=== PATIENT | male | born 1945 | race Caucasian/White ===

== ENCOUNTER 2017-10-26 19:32 | Inpatient (IN) | payer MEDICARE, OTHER ==
[~2017-10-26] VITALS: Ht 175.3 cm; Wt 85.7 kg
[2017-10-26] MEDS ORDERED: IOHEXOL-350 100 ML VIAL IV ONE (19:48)
[2017-10-26] MEDS ORDERED: CT SWABBABLE VALVE TRANS SET 1 EA INFUS.SET MC ONE (19:48)
[2017-10-26] MEDS ORDERED: IV NS 0.9% 1,000 ML BAG IV ONE ×2 (20:00→20:30)
[2017-10-26 20:10] LABS: BASOPHILS % (AUTO) 0.4 % (0.0-2.0); EOSINOPHILS # (AUTO) 0.1 /CMM (0.0-0.7); EOSINOPHILS % (AUTO) 1.5 % (0.0-6.0); HEMATOCRIT 34 % (39-51); HEMOGLOBIN 11.9 g/dL (13.5-17.5); LYMPHOCYTES % (AUTO) 12.3 % (20.0-44.0); MEAN CORPUSCULAR HEMOGLOBIN 36 PG (26.0-33.0); MEAN CORPUSCULAR HGB CONC 36 g/dl (31.0-36.0); MEAN CORPUSCULAR VOLUME 102 fL (80-96); MONOCYTES # (AUTO) 0.5 /CMM (0.1-1.30); MONOCYTES % (AUTO) 6.1 % (2.0-12.0); NEUTROPHILS # (AUTO) 6.8 /CMM (1.8-8.9); NEUTROPHILS % (AUTO) 79.7 % (43.0-81.0); PLATELET COUNT (AUTO) 211 /CMM (150-450); RDW COEFFICIENT OF VARIATION 14.1 (11.5-15.0); WHITE BLOOD COUNT (AUTO) 8.5 K/uL (4.3-11.0)
[2017-10-26 20:21] LABS: CALCIUM, SERUM 8.2 mg/dL (8.5-10.1); CARBON DIOXIDE 25 mmol/L (21-32); CHLORIDE 110 mmol/L (98-107); CREATININE 3.1 mg/dL (0.6-1.3); GLUCOSE 146 mg/dL (74-106); POTASSIUM 4.3 mmol/L (3.5-5.1); SODIUM SERUM 144 mmol/L (136-145); UREA NITROGEN, BLOOD 36 mg/dL (7-18)
[2017-10-26 20:29] LABS: INR 0.93 (0.87-1.13)
[2017-10-26 20:30] LABS: TROPONIN I < 0.017 ng/mL (0.00-0.056)
--- NOTE | 2017-10-26 20:56 | NUR ---
BED 923-2
[2017-10-26] MEDS ORDERED: ASPIRIN 325 MG TABLET ONE (20:59)
[2017-10-26] MEDS ORDERED: ASPIRIN 325 MG TABLET PO ONE (21:00)
[2017-10-26 21:13] LABS: CHOLESTEROL 126 mg/dL (<200); HDL CHOLESTEROL 31 mg/dL (40-60); LDL 54 mg/dL (0-99); TRIGLYCERIDES 600 mg/dL (30-150)
[2017-10-26] MEDS ORDERED: CLOPIDOGREL BISULFATE 75 MG TABLET PO ONE (22:30)
[2017-10-26] MEDS ORDERED: ASPIRIN EC 325 MG TABLET.DR PO ONE (22:30)
--- NOTE | 2017-10-26 22:43 | NUR ---
REPORT GIVEN TO ROMEL RODRIGES.
--- NOTE | 2017-10-26 23:10 | NUR ---
RN NOTES INITIAL RECEIVED PT. FROM ER WITH DX. OF CEREBRAL INFRACTION, A/OX3, WITH LEFT SIDED WEAKNESS, SR ON TELE MONITOR HR-77, ADMISSION INSTRUCTION WAS RENDERED, CALL LIGHT WITHIN REACH, SIDERAILUPX2, WILL CONTINUE TO MONITOR
[2017-10-26] MEDS: SIMVASTATIN 40 MG TABLET PO SCH (23:56)
[2017-10-26] MEDS: IV NS 0.9% 1,000 ML IV PRN (23:56)
[2017-10-26] MEDS: BLOOD SUGAR DIAGNOSTIC 1 EACH STRIP IN SCH ×2 (23:56)
[2017-10-26] MEDS: ENOXAPARIN SODIUM 40 MG/0.4 ML DISP.SYRIN SQ SCH (23:57)
[2017-10-27] VITALS (7 sets, daily range): BP systolic 90–163; BP diastolic 55–81
--- NOTE | 2017-10-27 | NUR ---
RN NOTES ASKED PT. REGARDING HIS HOME MEDICATION , PT STATED THAT HE'S TAKING DIFFERENT KIND OF MEDICATION BUT CAN'T REMEMBER THE NAME WELL THE DOSES, AND PT. LIVES ALONE
--- NOTE | 2017-10-27 01:00 | NUR ---
RN NOTES REDILOGY CALLED AND INFORMED ME THAT MRI CANNOT BE DONE UNTIL IN THE MORNING, DR. WALDEN MADE AWARE
[2017-10-27] MEDS: BLOOD SUGAR DIAGNOSTIC 1 EACH STRIP IN SCH ×5 (06:56→20:43)
--- NOTE | 2017-10-27 06:56 | NUR ---
TEXTED DR. GALVIN FOR MRI APPROVAL.
--- NOTE | 2017-10-27 07:00 | NUR ---
RN NOTES AWAKE, MORNING CARE RENDERED, DENIES PAIN, NO SOB, CALL LIGHT WITHIN REACH, [id number] PT. NEEDS ATTENDED
[2017-10-27 07:40] LABS: BASOPHILS # (AUTO) 0.1 /CMM (0.0-0.2); BASOPHILS % (AUTO) 0.7 % (0.0-2.0); EOSINOPHILS # (AUTO) 0.2 /CMM (0.0-0.7); EOSINOPHILS % (AUTO) 2.5 % (0.0-6.0); HEMATOCRIT 33 % (39-51); HEMOGLOBIN 11.8 g/dL (13.5-17.5); LYMPHOCYTES # (AUTO) 1.6 /CMM (0.8-4.8); LYMPHOCYTES % (AUTO) 19.4 % (20.0-44.0); MEAN CORPUSCULAR HEMOGLOBIN 36 PG (26.0-33.0); MEAN CORPUSCULAR HGB CONC 35 g/dl (31.0-36.0); MEAN CORPUSCULAR VOLUME 101 fL (80-96); MONOCYTES # (AUTO) 0.6 /CMM (0.1-1.30); MONOCYTES % (AUTO) 6.9 % (2.0-12.0); NEUTROPHILS # (AUTO) 5.7 /CMM (1.8-8.9); NEUTROPHILS % (AUTO) 70.5 % (43.0-81.0); PLATELET COUNT (AUTO) 186 /CMM (150-450); RDW COEFFICIENT OF VARIATION 14.3 (11.5-15.0); RED BLOOD CELL COUNT(AUTO) 3.28 MIL/uL (4.5-6.0); WHITE BLOOD COUNT (AUTO) 8.1 K/uL (4.3-11.0)
[2017-10-27 07:52] LABS: CALCIUM, SERUM 7.8 mg/dL (8.5-10.1); CARBON DIOXIDE 23 mmol/L (21-32); CHLORIDE 109 mmol/L (98-107); CREATININE 2.3 mg/dL (0.6-1.3); GLUCOSE 106 mg/dL (74-106); POTASSIUM 3.8 mmol/L (3.5-5.1); SODIUM SERUM 143 mmol/L (136-145); UREA NITROGEN, BLOOD 29 mg/dL (7-18)
[2017-10-27 07:59] LABS: CHOLESTEROL 128 mg/dL (<200); HDL CHOLESTEROL 29 mg/dL (40-60); LDL 55 mg/dL (0-99); TRIGLYCERIDES 311 mg/dL (30-150)
--- NOTE | 2017-10-27 08:00 | NUR ---
rn notes received patient in the bed a/o x3, tele on sr-63, patient denied pain at this time, no acute distress, VENETIE [place], patient NPO at this time, v/s taken stable, no complaining of chest pain, patient using urinal, needs attended and anticipated, call light within to reach, safety precaution maintained all the time.
[2017-10-27] MEDS ORDERED: HYDR12.55 PO (08:02)
[2017-10-27] MEDS ORDERED: CLOP75TA15 PO (08:02)
[2017-10-27] MEDS ORDERED: ATOR80TA PO (08:02)
[2017-10-27] MEDS ORDERED: PIOG30TA10 PO (08:02)
[2017-10-27] MEDS ORDERED: GABA-534 PO (08:02)
[2017-10-27] MEDS ORDERED: INSU100I30 SQ (08:02)
[2017-10-27] MEDS ORDERED: GLIP5TAB13 PO (08:02)
[2017-10-27] MEDS ORDERED: AMLO10TA2 PO (08:02)
[2017-10-27] MEDS ORDERED: TAMS0.4C34 PO (08:02)
[2017-10-27] MEDS ORDERED: OXYB5TAB PO (08:02)
[2017-10-27] MEDS ORDERED: MYRBETRIQ PO (08:02)
[2017-10-27] MEDS ORDERED: ATEN100T PO (08:02)
[2017-10-27 08:03] LABS: INR 0.93 (0.87-1.13)
--- NOTE | 2017-10-27 09:54 | NUR ---
RN NOTES PATIENT SEEN BY DR OTERO, AND WITH THE PT AT THIS TIME, IV ON LEFT AC AREA NS 80 ML./HR INTACT, CONTINUED MONITORING.
--- NOTE | 2017-10-27 10:15 | NUR ---
RN NOTES PATIENT AEROBICS INSTRUCTOR FOR MRI AT THIS TIME BY ASSISTED LIVING EXECUTIVE DIRECTOR.
[2017-10-27] MEDS: CLOPIDOGREL BISULFATE 75 MG TABLET PO SCH (11:29)
[2017-10-27] MEDS: ASPIRIN EC 325 MG TABLET.DR PO SCH (11:29)
[2017-10-27] MEDS ORDERED: DEXTROSE 50%-WATER 50 ML DISP.SYRIN IV PRN (12:00)
[2017-10-27] MEDS: GABAPENTIN 300 MG CAPSULE PO SCH ×3 (12:06→20:38)
[2017-10-27] MEDS: INSULIN REGULAR, HUMAN 100 UNIT/ML 3 ML VIAL SQ PRN ×3 (12:58→20:57)
--- NOTE | 2017-10-27 12:59 | NUR ---
RN NOTES BS-150 MG/DL, 2 UNITS OF COVERAGE GIVEN, ALSO ADMINISTERED SCHEDULED MEDICATION, PATIENT SITTING EDGE OF THE BED AT THIS TIME EATING LUNCH, NO ACUTE RESPIRATORY DISTRESS, NO C/O PAIN AT THIS TIME, CALL LIGHT WITHIN TO REACH, CONTINUED MONITORING.
[2017-10-27] MEDS: ACETAMINOPHEN 325 MG TABLET PO PRN ×2 (14:39→20:44)
--- NOTE | 2017-10-27 14:39 | NUR ---
RN NOTES ADMINISTERED TYLENOL 650 MG PO PRN FOR HEADACHE, CONTINUED MONITORING.
--- NOTE | 2017-10-27 17:00 | NUR ---
RN NOTES BS-169 MG/DL, SCHEDULED MEDICATION ADMINISTERED, V/S STABLE, NO C/O PAIN AT THIS TIME. PATIENT'S SON NEXT TO THE BED, PATIENT EATING DINNER, CALL L;IGHT WITHIN TO REACH, SAFETY PRECAUTION MAINTAINED ALL THE TIME.
--- NOTE | 2017-10-27 18:30 | NUR ---
RN NOTES PATIENT IN THE BED, STABLE, NO ACUTE RESPIRATORY DISTRESS, INFUSING NS AT 80 ML/HR, NO C/O PAIN, CALL LIGHT WITHIN TO REACH. CONTINUED MONITORING. ENDORSED ONCOMING NURSE FOR JESSICA.
--- NOTE | 2017-10-27 19:35 | NUR ---
VP MARKETING OPENING NOTES RECEIVED PATIENT RESTING IN BED WATCHING TV, A & O X 3. NO SOB, NO C/O PAIN, NO ACUTE DISTRESS NOTED @ THIS TIME. ON TELE MONITORING WITH SR 65. AMBULATORY WITH WALKER WITH STANDBY ASSISTANCE. REFUSES TO USE URINAL @ BEDSIDE, ONLY WANTS BRP. IV ACCESS TO LAC, INTACT PATENT RUNNING WITH NS @ 80 ML/HR. BED ALARM ON & IN LOW LOCKED POSITION. CALL LIGHT WITHIN REACH. EDUCATED PT TO CALL FOR HELP TO GET OOB FOR SAFETY, VERBALIZED UNDERSTANDING. WILL CONTINUE TO MONITOR CLOSELY.
--- NOTE | 2017-10-27 20:44 | NUR ---
PRN TYLENOL GIVEN PATIENT HAD C/O HEADACHE & ASKED FOR TYLENOL, PRN TYLENOL GIVEN. WILL REASSESS FOR EFFECTIVENESS. MONITORING CLOSELY.
[2017-10-27] MEDS: IV NS 0.9% 1,000 ML IV PRN (20:59)
[2017-10-27] MEDS: ATORVASTATIN 40 MG TABLET PO SCH (22:00)
[2017-10-27] MEDS: SIMVASTATIN 40 MG TABLET PO SCH (22:33)
[2017-10-27] MEDS: ENOXAPARIN SODIUM 40 MG/0.4 ML DISP.SYRIN SQ SCH (22:35)
--- NOTE | 2017-10-27 22:52 | NUR ---
PT REFUSED LIPITOR PT AGREED TO TAKE ALL 10 PM MEDS WHEN CHECKED WITH HIM BEFORE GIVING IT TO HIM, BUT WHEN READY TO ADMINISTER HE STATED THAT HE REMEMBERED THAT LIPITOR USED TO GIVE HIM DIARRHEA & HE REFUSED TO TAKE LIPITOR ORDERED BY , WASTED THE MED SINCE IT WAS OPENED. MONITORING CLOSELY.
[2017-10-28] VITALS: BP_SYST 143; BP_SYST 172; BP_DIAS 76; BP_DIAS 80
[2017-10-28] MEDS: BLOOD SUGAR DIAGNOSTIC 1 EACH STRIP IN SCH ×6 (01:33→21:23)
[2017-10-28 04:00] VITALS: BP_SYST 151; BP_SYST 161; BP_DIAS 75
[2017-10-28] MEDS: INSULIN REGULAR, HUMAN 100 UNIT/ML 3 ML VIAL SQ PRN ×5 (05:57→21:26)
--- NOTE | 2017-10-28 07:20 | NUR ---
RESORT KEEPER CLOSING NOTES PATIENT SLEPT INTERMITTENTLY @ NIGHT, A & O X 3. NO SOB, NO C/O PAIN, NO ACUTE DISTRESS NOTED @ THIS TIME. ON TELE MONITORING WITH SR 67. AMBULATORY WITH WALKER WITH STANDBY ASSISTANCE. REFUSES TO USE URINAL @ BEDSIDE, ONLY PREFERS BRP. IV ACCESS TO LAC, INTACT PATENT RUNNING WITH NS @ 80 ML/HR. BED ALARM ON & IN LOW LOCKED POSITION. CALL LIGHT WITHIN REACH. ENDORSED TO AM RN FOR JESSICA.
--- NOTE | 2017-10-28 07:30 | NUR ---
HOMICIDE INVESTIGATOR NOTES PATIENT RECEIVED AWAKE, ALERT AND ORIENTED. ABLE TO MAKE NEEDS KNOWN AND FOLLOW SIMPLE INSTRUCTIONS. PATIENT BREATHING EVEN AND UNLABORED. NO SOB OR CONGESTION NOTED. PATIENT AFEBRILE, SKIN DRY AND WARM TO TOUCH. BED LOCKED AND IN LOW POSITION, BILATERAL UPPPER SIDE RAILS UP AND LOCKED. CALL LIGHT WITHIN EASY REACH. WILL CONTINUE TO MONITOR
[2017-10-28 07:39] LABS: CALCIUM, SERUM 8.1 mg/dL (8.5-10.1); CARBON DIOXIDE 24 mmol/L (21-32); CHLORIDE 109 mmol/L (98-107); CREATININE 1.8 mg/dL (0.6-1.3); GLUCOSE 131 mg/dL (74-106); MAGNESIUM 1.6 mg/dL (1.8-2.4); PHOSPHORUS 3.6 mg/dL (2.5-4.9); POTASSIUM 3.6 mmol/L (3.5-5.1); SODIUM SERUM 145 mmol/L (136-145); UREA NITROGEN, BLOOD 23 mg/dL (7-18)
[2017-10-28 07:42] LABS: BASOPHILS % (AUTO) 0.7 % (0.0-2.0); EOSINOPHILS # (AUTO) 0.2 /CMM (0.0-0.7); EOSINOPHILS % (AUTO) 2.3 % (0.0-6.0); HEMATOCRIT 36 % (39-51); HEMOGLOBIN 12.4 g/dL (13.5-17.5); LYMPHOCYTES # (AUTO) 1.4 /CMM (0.8-4.8); LYMPHOCYTES % (AUTO) 19.4 % (20.0-44.0); MEAN CORPUSCULAR HEMOGLOBIN 35 PG (26.0-33.0); MEAN CORPUSCULAR HGB CONC 35 g/dl (31.0-36.0); MEAN CORPUSCULAR VOLUME 102 fL (80-96); MONOCYTES # (AUTO) 0.6 /CMM (0.1-1.30); MONOCYTES % (AUTO) 7.9 % (2.0-12.0); NEUTROPHILS # (AUTO) 5.1 /CMM (1.8-8.9); NEUTROPHILS % (AUTO) 69.7 % (43.0-81.0); PLATELET COUNT (AUTO) 189 /CMM (150-450); WHITE BLOOD COUNT (AUTO) 7.3 K/uL (4.3-11.0)
[2017-10-28 07:43] LABS: THYROID STIMULATING HORMONE 3.863 uIU/mL (0.358-3.74)
[2017-10-28 07:54] LABS: IRON, SERUM 84 ug/dl (50-175); TOTAL IRON BINDING CAPACITY 288 ug/dl (250-450)
[2017-10-28 08:00] VITALS: BP 165/75
[2017-10-28] MEDS ORDERED: CLOPIDOGREL BISULFATE 75 MG TABLET PO SCH (09:00)
[2017-10-28] MEDS: CLOPIDOGREL BISULFATE 75 MG TABLET PO SCH (09:31)
[2017-10-28] MEDS: GABAPENTIN 300 MG CAPSULE PO SCH ×4 (09:31→21:23)
[2017-10-28] MEDS: AMLODIPINE BESYLATE 10 MG TABLET PO SCH (09:32)
[2017-10-28] MEDS: ASPIRIN EC 325 MG TABLET.DR PO SCH (09:33)
[2017-10-28] MEDS: OXYBUTYNIN CHLORIDE ER 5 MG TAB PO SCH (09:33)
[2017-10-28] MEDS: ATENOLOL 50 MG TABLET PO SCH (09:33)
[2017-10-28] MEDS: TAMSULOSIN 0.4 MG CAP.SR.24H PO SCH (09:33)
[2017-10-28] MEDS: INSULIN GLARGINE, 100 UNIT/ML CARTRIDGE SQ SCH (09:54)
[2017-10-28] MEDS ORDERED: Magnesium 1GM/D5W 100ML PREMIX 100 ML IV SCH ×2 (10:02→13:00)
--- NOTE | 2017-10-28 13:00 | NUR ---
MS RN NOTES PATIENT SEEN BY PT, TO START PT REHABILITATION EXERCISES. DENIES ANY PAIN OR DISCOMFORT. NO CHANGES IN LOC NOTED. WILL CONTINUE TO MONITOR
[2017-10-28] MEDS: ACETAMINOPHEN 325 MG TABLET PO PRN ×2 (13:02→21:28)
[2017-10-28 16:00] VITALS: BP 142/71
--- NOTE | 2017-10-28 18:26 | NUR ---
MS RN NOTES PATIENT AWAKE, ALERT AND ORIENTED. ABLE TO MAKE NEEDS KNOWN AND FOLLOW SIMPLE INSTRUCTIONS. PATIENT BREATHING EVEN AND UNLABORED. NO SOB OR ACUTE DISTRESS NOTED. PATIENT AFEBRILE, SKIN DRY AND WARM TO TOUCH. NO CHANGES IN LOC NOTED. IV SITE ON LEFT AC IN PLACE, PATENT AND INTACT. NO BLEEDING OR SWELLING NOTED. ALL NURSING NEEDS ATTENDED AND MET. PATIENT KEPT CLEAN, DRY AND COMFORTABLE. PROVIDED WITH CALM, SAFE, HAZARD-FREE ENVIRONMENT. BED LOCKED AND IN LOW POSITION, BILATERAL UPPER SIDE RAILS UP AND LOCKED. CALL LIGHT WITHIN EASY REACH. WILL CONTINUE TO MONITOR
--- NOTE | 2017-10-28 19:30 | NUR ---
MS RN OPENING NOTES RECEIVED PATIENT RESTING IN BED, A & O X 3. NO SOB, NO C/O PAIN, NO ACUTE DISTRESS NOTED @ THIS TIME. AMBULATORY WITH WALKER, HAD PT DONE IN AM TODAY. PREFERS BRP, NOT URINAL. IV ACCESS TO LAC, INTACT PATENT RUNNING WITH NS @ 80 ML/HR. BED ALARM ON & IN LOW LOCKED POSITION. CALL LIGHT WITHIN REACH. EDUCATED PT TO CALL FOR HELP TO GET OOB FOR SAFETY, VERBALIZED UNDERSTANDING. WILL CONTINUE TO MONITOR CLOSELY.
[2017-10-28 20:00] VITALS: BP 154/70
[2017-10-28] MEDS: ATORVASTATIN 40 MG TABLET PO SCH (21:23)
[2017-10-28] MEDS: SIMVASTATIN 40 MG TABLET PO SCH (21:23)
[2017-10-28] MEDS: IV NS 0.9% 1,000 ML IV PRN (21:24)
[2017-10-28] MEDS: ENOXAPARIN SODIUM 40 MG/0.4 ML DISP.SYRIN SQ SCH (21:56)
--- NOTE | 2017-10-28 22:30 | NUR ---
REFUSED IVF PATIENT HAS BEEN IN & OUT OF BED FOR BRP USING WALKER. TAKES PO FLUIDS TOLERATED. REFUSED TO BE HOOKED UP TO THE IV LINE @ ALL @ THIS TIME DESPITE OF EXPLAINING RISKS & BENEFITS. WILL RECHECK WITH THE PT AGAIN.
--- NOTE | 2017-10-29 00:20 | NUR ---
MS RN NOTES FOUND OVER THE COUNTER MED CHANTIX ON PT'S TABLE, EXPLAINED TO THE PT THAT OTC MED NEEDS TO BE SENT TO THE PHARMACY & HE WILL GET IT BACK WHEN DISCHARGED. PT GOT VERY UPSET/ANXIOUS & REFUSED TO GIVE OTC MED TO THE NURSE, STATED " IT'S VERY EXPENSIVE, JUST LEAVE IT HERE, I WON'T TAKE IT.' EXPLAINED TO HIM ABOUT THE FACILITY PROTOCOL ABOUT OTC MEDS BUT HE CONTINUED TO REFUSE TO GIVE THE MED. INFORMED CN & WILL ENDORSE TO AM RN.
[2017-10-29] MEDS: BLOOD SUGAR DIAGNOSTIC 1 EACH STRIP IN SCH ×5 (01:58→16:33)
--- NOTE | 2017-10-29 04:15 | NUR ---
MS RN NOTES PATIENT SLEEPING IN BED COMFORTABLY. CONTINUED REFUSING IVF @ NIGHT. NO JESSICA NOTED.
--- NOTE | 2017-10-29 07:10 | NUR ---
MS RN CLOSING NOTES PATIENT SLEPT WELL IN BED, A & O X 3. NO SOB, NO C/O PAIN, NO ACUTE DISTRESS NOTED. AMBULATORY WITH WALKER, PREFERS BRP, NOT URINAL. IV ACCESS TO LAC, INTACT PATENT. REFUSED IVF @ NIGHT ORDERED. BED ALARM ON & IN LOW LOCKED POSITION. CALL LIGHT WITHIN REACH. EDUCATED PT TO CALL FOR HELP TO GET OOB FOR SAFETY, VERBALIZED UNDERSTANDING. ENDORSED TO AM RN FOR JESSICA.
--- NOTE | 2017-10-29 07:30 | NUR ---
MS/RN OPENING NOTE RECEIVED PATIENT IN BED AWAKE. ALERT AND ORIENTED X3. RESPIRATION REGULAR AND UNLABORED. DENIES SOB, PAIN AT THIS TIME. IN NO APPARENT DISTRESS. LAC G 18 PATENT AND SALINE LOCKED AT THIS TIME. BED LOW AND LOCKED. ENCOURAGED TO PRESS THE CALL LIGHT FOR ASSISTANCE. CALL LIGHT WITHIN REACH. WILL CONTINUE TO MONITOR.
[2017-10-29 07:34] LABS: CALCIUM, SERUM 8.2 mg/dL (8.5-10.1); CARBON DIOXIDE 23 mmol/L (21-32); CHLORIDE 109 mmol/L (98-107); CREATININE 1.8 mg/dL (0.6-1.3); GLUCOSE 115 mg/dL (74-106); MAGNESIUM 1.8 mg/dL (1.8-2.4); POTASSIUM 3.5 mmol/L (3.5-5.1); SODIUM SERUM 145 mmol/L (136-145); UREA NITROGEN, BLOOD 24 mg/dL (7-18)
[2017-10-29 08:10] VITALS: BP 153/79
[2017-10-29] MEDS: CLOPIDOGREL BISULFATE 75 MG TABLET PO SCH (08:14)
[2017-10-29] MEDS: ACETAMINOPHEN 325 MG TABLET PO PRN (08:14)
[2017-10-29] MEDS: ASPIRIN EC 325 MG TABLET.DR PO SCH (08:14)
[2017-10-29] MEDS: OXYBUTYNIN CHLORIDE ER 5 MG TAB PO SCH (08:14)
[2017-10-29] MEDS: TAMSULOSIN 0.4 MG CAP.SR.24H PO SCH (08:14)
[2017-10-29] MEDS: GABAPENTIN 300 MG CAPSULE PO SCH ×3 (08:14→16:32)
[2017-10-29 08:15] VITALS: BP 153/79
[2017-10-29] MEDS: AMLODIPINE BESYLATE 10 MG TABLET PO SCH (08:15)
[2017-10-29] MEDS: ATENOLOL 50 MG TABLET PO SCH (08:15)
[2017-10-29] MEDS: INSULIN GLARGINE, 100 UNIT/ML CARTRIDGE SQ SCH (09:56)
[2017-10-29] MEDS: INSULIN REGULAR, HUMAN 100 UNIT/ML 3 ML VIAL SQ PRN ×2 (13:04→16:33)
--- NOTE | 2017-10-29 18:00 | NUR ---
MS/RN CLOSING NOTE PATIENT ALERT AND ORIENTED X3. DENIES SOB, PAIN. IN NO APPARENT DISTRESS. LEFT THE HOSPITAL ON A GURNEY BY AMBULANCE. LEFT IN STABLE CONDITION.
== END 2017-10-29 18:50 | DRG 64 ==
LOC: ER 19:34 → TELE 21:00 → MED 10-28 09:37
PROVIDERS: ADMIT Internal Medicine; ATTEND Internal Medicine
DX: I63.9 Cerebral infarction, unspecified (principal); N17.0 Acute kidney failure with tubular necrosis; I12.9 Hypertensive chronic kidney disease with stage 1 through stage 4 chronic kidney disease, or unspecified chronic kidney disease; Z79.82 Long term (current) use of aspirin; Z86.73 Personal history of transient ischemic attack (TIA), and cerebral infarction without residual deficits; R29.6 Repeated falls; N40.0 Benign prostatic hyperplasia without lower urinary tract symptoms; F41.9 Anxiety disorder, unspecified; F32.9 Major depressive disorder, single episode, unspecified; E78.5 Hyperlipidemia, unspecified; E56.9 Vitamin deficiency, unspecified; E11.51 Type 2 diabetes mellitus with diabetic peripheral angiopathy without gangrene; E11.22 Type 2 diabetes mellitus with diabetic chronic kidney disease; I65.21 Occlusion and stenosis of right carotid artery; N18.3 Chronic kidney disease, stage 3 (moderate); D75.89 Other specified diseases of blood and blood-forming organs; D63.8 Anemia in other chronic diseases classified elsewhere; I70.0 Atherosclerosis of aorta; Z98.62 Peripheral vascular angioplasty status; Z79.4 Long term (current) use of insulin; Z79.84 Long term (current) use of oral hypoglycemic drugs; Z79.899 Other long term (current) drug therapy; M47.812 Spondylosis without myelopathy or radiculopathy, cervical region
CPT/HCPCS: 36415; 70450-TC; 70496-TC; 70498-TC; 70551-TC; 71045-TC; 80048-TC; 80061-TC; 82746; 82962-TC; 83540-TC; 83735-TC; 84100-TC; 84443-TC; 84484-TC; 85025-TC; 85730-TC; 87081-TC; 92611-TC; 93307-TC; 97110-TC; 97112-TC; 97116-TC; 97530-TC; A4606; J1650; J1815; J3475; J7030; Q9967; Z7610